=== PATIENT | female | born 1980 | race Caucasian/White ===

== ENCOUNTER 2017-06-22 15:50 | Emergency (ER) | payer OTHER ==
[2017-06-22 16:34] LABS: Basophils % (Auto) 0.3 % (0.0-1.8); Eosinophils % (Auto) 0.3 % (0.0-4.3); Hematocrit 42.3 % (30.3-42.9); Hemoglobin 14.5 gm/dl (10.1-14.3); Mean Corpuscular HGB Conc 34 % (30-34); Mean Corpuscular Hemoglobin 34 pg (28-32); Mean Corpuscular Volume 98 fl (79-97); Platelet Count 222 K/mm3 (140-440); Red Blood Count 4.31 M/mm3 (3.65-5.03); Red Cell Distribution Width 13.2 % (13.2-15.2); White Blood Count 10.3 K/mm3 (4.5-11.0)
[2017-06-22] MEDS ORDERED: ZOFRAN IV ONE (16:40)
[2017-06-22] MEDS ORDERED: TYLENOL PO ONE (16:40)
[2017-06-22 16:42] LABS: Alanine Aminotransferase 11 units/L (7-56); Albumin 3.8 g/dL (3.9-5); Albumin/Globulin Ratio 0.9 %; Alkaline Phosphatase 67 units/L (35-129); Anion Gap 23 mmol/L; Blood Urea Nitrogen 9 mg/dL (7-17); Calcium 9.4 mg/dL (8.4-10.2); Carbon Dioxide 22 mmol/L (22-30); Chloride 95.9 mmol/L (98-107); Glucose 128 mg/dL (65-100); Lipase 18 units/L (13-60); Potassium 3.5 mmol/L (3.6-5.0); Sodium 137 mmol/L (137-145); Total Protein 8.2 g/dL (6.3-8.2)
--- NOTE | 2017-06-22 16:45 | Emergency Department Report ---
HPI - General Chief Complaint: Abdominal Pain Time Seen by Provider: 06/22/17 16:34 - HPI HPI: 36 yo AA F presents to the ED, driving herself in to be seen, with a two day history of right sided abdominal pain, nausea, vomiting, chills and sweats with a fever Tmax 100.4. She took an Aleve for pain this morning at 630 AM without any relief. She denies any cough, vaginal bleeding or discharge, dysuria, CP, SOB. No past medical history. No significant surgical history. No recent travel or sick contacts at home. She thought she had a hangover at first after "being up in the cabin" but it did not go away today. She does admit to increased urinary frequency. ED Past Medical Hx - Past Medical History Previous Medical History?: No - Surgical History Past Surgical History?: Yes Additional Surgical History: , right wrist fx right femur with jyothi - Social History Smoking Status: Light Tobacco Smoker Substance Use Type: None - Medications Home Medications: Home Medications Medication Instructions Recorded Confirmed Last Taken Type Ciprofloxacin HCl [Ciprofloxacin 500 mg PO BID #20 tablet 06/22/17 Unknown Rx TAB] Naproxen Sodium [Aleve TAB] 220 mg PO Q8H PRN 06/22/17 06/22/17 06/22/17 History ED Review of Systems ROS: Stated complaint: CHILLS AND BODYACHES Other details as noted in HPI Comment: All other systems reviewed and negative Constitutional: chills, diaphoresis, fever Eyes: denies: eye pain, eye discharge, vision change ENT: denies: ear pain, throat pain Respiratory: denies: cough, shortness of breath, wheezing Cardiovascular: denies: chest pain, palpitations Gastrointestinal: abdominal pain, nausea, vomiting Genitourinary: frequency. denies: dysuria, discharge Musculoskeletal: myalgia. denies: joint swelling Skin: denies: rash, lesions Neurological: denies: headache, weakness, paresthesias Physical Exam - Physical Exam Vital Signs: Vital Signs 06/22/17 15:54 Temperature 100.1 F H Pulse Rate 117 H Respiratory 18 Rate Blood Pressure 178/106 O2 Sat by Pulse 98 Oximetry Physical Exam: General - Well nourished. Well developed Eyes - PERRLA, EOM intact. HEENT - Atraumatic. Normocephalic. Moist mucous membranes. Oropharynx is clear. Neck - Supple. Trachea is midline. Cardiovascular - Regular rhythm. Mild tachycardia. No murmurs. Lungs - Clear to auscultation, No tachypnea. No signs of respiratory distress. Skin - Warm but dry. Abdomen - Normal bowel sounds, abdomen soft. Tenderness to palpation along the right side of the abdomen, both RUQ and RLQ. No guarding or rebound tenderness. Extremeties - No tenderness to palpation or deformity. Full range of motion. No obvious signs of trauma. Neurological Alert and oriented x 3, CN 2-12 grossly intact. Normal gait. Normal speech. ED Course Vital Signs 06/22/17 15:54 Temperature 100.1 F H Pulse Rate 117 H Respiratory 18 Rate Blood Pressure 178/106 O2 Sat by Pulse 98 Oximetry ED Medical Decision Making - Lab Data Result diagrams: 06/22/17 16:11 06/22/17 16:11 - Radiology Data Radiology results: report reviewed, image reviewed interpreted by me: Abdominal x-ray shows nonspecific nonobstructive bowel gas. CT of the abdomen and positive IV contrast shows signs of cystitis as well as some irregular cortical enhancement of the right kidney which could represent early pyelonephritis. - Medical Decision Making There is an year-old female presents with 2 day history of fever, nausea, right sided abdominal pain. She has urinary tract infection and on CT that shows early right-sided pyelonephritis. Patient was given Rocephin here and will go home on a 10 day course of Cipro. She was given Tylenol and Toradol and her fever and tachycardia resolved. She is feeling improved. She was given multiple referrals for primary care. She will return to the ER with any worsening of her symptoms or any acute distress. - Differential Diagnosis cystitis, pyelonephritis, nephrolithiasis, hydronephrosis, appendicitis Critical Care Time: No Critical care attestation.: If time is entered above; I have spent that time in minutes in the direct care of this critically ill patient, excluding procedure time. ED Disposition Clinical Impression: Pyelonephritis UTI (urinary tract infection) Qualifiers: Urinary tract infection type: acute cystitis Hematuria presence: with hematuria Qualified Code(s): N30.01 - Acute cystitis with hematuria Abdominal pain Qualifiers: Abdominal location: unspecified location Qualified Code(s): R10.9 - Unspecified abdominal pain Disposition: TO HOME OR SELFCARE Is pt being admited?: No Condition: Stable Instructions: Urinary Tract Infection in Women (ED), Acute Pyelonephritis (ED) , Abdominal Pain (ED) Additional Instructions: Please follow up with a primary care physician the next few days. Return to the emergency Department with any worsening of her symptoms or any acute distress. Prescriptions: Ciprofloxacin HCl [Ciprofloxacin TAB] 500 mg PO BID #20 tablet Referrals: PRIMARY CARE, [Primary Care Provider] - 3-5 Days JOSE CORDOVA MD [Staff Physician] - 3-5 Days TOD DASILVA MD [Staff Physician] - 3-5 Days KAREY CORTEZ MD [Staff Physician] - 3-5 Days Time of Disposition: 21:58
[2017-06-22 17:14] LABS: Bacteria,Urine 2+ /HPF (Negative); Bilirubin,Urine NEG (Negative); Blood,Urine MOD (Negative); Ketones,Urine 20 mg/dL (Negative); Leukocyte Esterase,Urine LG (Negative); Mucus,Urine 3+ /HPF; Nitrite,Urine POS (Negative); Urobilinogen,Urine < 2.0 mg/dL (<2.0)
[2017-06-22] MEDS ORDERED: TORADOL IV ONE (17:14)
[2017-06-22] MEDS ORDERED: NACL 0.9% 1000 ML 1,000 ML IV ONE (17:14)
[2017-06-22 17:28] LABS: WBC,Urine > 182.0 /HPF (0.0-6.0)
[2017-06-22] MEDS ORDERED: ROCEPHIN/NS 1 GM/50 ML 1 GM/50 ML BAG IV ONE (17:45)
[2017-06-22] MEDS ORDERED: NACL ONE (19:39)
--- NOTE | 2017-06-22 21:21 | Cat Scan Report ---
FINAL REPORT EXAM: CT ABDOMEN PELVIS W CON HISTORY: Abd pain in RUQ and RLQ, fever TECHNIQUE: CT of the abdomen and pelvis with IV contrast. Coronal and sagittal reconstructed imaging provided. PRIORS: None currently available. FINDINGS: ABDOMEN: Fatty liver. No distinct lesions. No abnormal enhancing lesions. Gallbladder, stomach, spleen, pancreas, and adrenals are unremarkable. Series 3:43 demonstrates irregular cortical enhancement which may represent a developing pyelonephritis. Differential diagnosis would include infiltrating malignancy. No hydronephrosis. No distinct enhancing lesion. Left kidney is unremarkable. No significant perinephric stranding. IVC is intact. No abdominal aortic aneurysm or dissection. No periaortic or retroperitoneal mass or adenopathy. [id number] stool is present throughout the colon. No wall thickening or inflammatory changes. Appendix is normal. Terminal ilium is unremarkable. Small bowel loops are unremarkable. No obstructive pattern. No free air. No free fluid. PELVIS: Collapsed bladder is not well evaluated but appears to be thick walled. This limited CT images of the uterus are grossly unremarkable. No pelvic mass or adenopathy is clearly evident. Inguinal regions are unremarkable. Bones: No suspicious osseous lesions on this limited examination of the skeleton. Metastatic disease better evaluated with bone scan. Degenerative changes are in the spine. IMPRESSION: Partially collapsed bladder is not well evaluated. However it does appear thick wall. Please correlate for possible cystitis or lesion. Subtle heterogeneous cortical enhancement of the right kidney suggest developing pyelonephritis. Please correlate clinically. Fatty liver. No distinct lesions.
[2017-06-22 22:06] VITALS: BP 120/75
--- NOTE | 2017-06-23 08:21 | XRay Report ---
ABDOMEN RADIOGRAPHS INDICATION: Abdominal pain. COMPARISON: None similar at this institution. FINDINGS: Frontal abdominal supine and upright radiographs demonstrate a nonobstructive bowel gas pattern. No focal suspicious calcifications, pneumatosis or pneumoperitoneum. Mild spinal degenerative changes. Right femoral medullary jyothi postsurgical changes noted as also mild bilateral hip degenerative changes. CONCLUSION: No acute abdominal radiographic abnormality, as described. Thank you for the opportunity to participate in this patient's care.
== END 2017-06-22 22:09 | disposition home or self-care (01) ==
LOC: ED 15:50
DX: N30.01 Acute cystitis with hematuria (principal); R10.11 Right upper quadrant pain; R10.31 Right lower quadrant pain; F17.200 Nicotine dependence, unspecified, uncomplicated
CPT/HCPCS: 36415; 74020; 74177; 80053; 81001; 83690; 84703; 85025; 96365; 96375; 99284; J0696; J1885; J2405; J7030; Q9967